=== PATIENT | female | born 1970 | race African-American/Black ===

== ENCOUNTER → 2017-06-22 | Outpatient (CLI) | payer BC ==
[~2017-06-22] MED LIST: GLC/500 PO
[2017-06-22 17:24] LABS: ALT/SGPT 20 U/L (12-78); BLOOD UREA NITROGEN 13 mg/dl (7-18); BUN/CREATININE RATIO 11.8 (10-20); CALCIUM 9.6 mg/dl (8.5-10.1); CARBON DIOXIDE 25 mmol/L (21-32); CHLORIDE 106 mmol/L (98-107); CHOLESTEROL 228 mg/dl (0-200); GLUCOSE 131 mg/dl (70-99); POTASSIUM 4.3 mmol/L (3.5-5.1); SODIUM 138 mmol/L (136-145)
[2017-06-22 17:27] LABS: ALB/GLOB RATIO 0.9 (0.9-2); ALKALINE PHOSPHATASE 78 U/L (45-117); AST/SGOT 11 U/L (15-37); CHOLESTEROL/HDL RATIO 4.1; HDL CHOLESTEROL 56 mg/dl; LDL CHOLESTEROL CALCULATED 150 mg/dl; TRIGLYCERIDES 108 mg/dl (0-150); VERY LOW DENSITY LIPOPROT CALC 22 mg/dl
[2017-06-22 17:42] LABS: RATIO 13.1 mcg/mg (0-30.0)
[2017-06-23 08:00] LABS: ESTIMATED AVERAGE GLUCOSE 117 mg/dl; HA1C FLAG Normal (Normal)
== END | disposition home or self-care (01) ==
LOC: C.LABBFT 12:20
PROVIDERS: ATTEND Nurse Practitioner
DX: E11.9 Type 2 diabetes mellitus without complications (principal); I10 Essential (primary) hypertension; E78.5 Hyperlipidemia, unspecified